=== PATIENT | female | born 1965 | race Caucasian/White ===

== ENCOUNTER → 2019-03-07 20:10 | Outpatient (CLI) | payer OTHER, SELFPAY | PROVIDERS: PCP Family Medicine; Visit Provider Physician Assistant | DX: J02.9 Acute pharyngitis, unspecified (principal) | CPT/HCPCS: 87070; 87077; 87147 ==

== ENCOUNTER → 2019-06-21 15:09 | Outpatient (CLI) | payer OTHER, SELFPAY ==
--- NOTE | 2019-06-21 15:11 | DI.US.S_ITS ---
PROCEDURE: US PELVIC COMPLETE INDICATIONS: PMB TECHNIQUE: Real-time scanning was performed of the pelvic organs, with image documentation. Additional endovaginal scanning was necessary due to incomplete visualization of the adnexal and endometrial structures by transabdominal scanning. COMPARISON: [facility], , PELVIC COMPLETE, 06/30/2017, 15:20. FINDINGS: Transabdominal scanning: Limited scanning through the kidneys shows no hydronephrosis. No pathologic free abdominal or pelvic fluid. Endovaginal scanning: Uterus: Uterus is normal in size at 8.0 x 3.9 x 4.3 cm. The endometrium measures 5.0 mm in combined thickness. Posterior subserosal fibroid similar in size measuring 2.3 x 2.4 x 1.6 cm. Anterior intramural fibroid slightly increased measure 1.1 x 0.9 x 0.8 cm. Ovaries: Right ovary not visualized. Normal left ovary measuring 1.8 x 0.9 x 1.3 cm. Complex left paraovarian thick walled cyst decreased in size now measuring 2.6 x 2.1 x 1.7 cm. IMPRESSION: 1. Uterine fibroids, with the anterior intramural fibroid slightly increased in size compared to prior examination. 2. Decrease in size of complex left paraovarian cyst. Dictated by: Tray Miller [facility] Interpreted: Sanjeev Willson MD on 06/21/2019 at 16:58 Approved by: Sanjeev Willson M.D. on 06/22/2019 at 15:20
== END ==
PROVIDERS: PCP Family Medicine; Visit Provider Family Medicine
DX: N95.0 Postmenopausal bleeding (principal); D25.1 Intramural leiomyoma of uterus; D25.2 Subserosal leiomyoma of uterus; N83.292 Other ovarian cyst, left side
CPT/HCPCS: 76830; 76856

== ENCOUNTER → 2019-11-28 08:39 | Outpatient (CLI) | payer OTHER, SELFPAY ==
--- NOTE | 2019-11-28 08:41 | DI.RAD.S_ITS ---
PROCEDURE: XR HIP W PEL IF DONE LT 2V INDICATIONS: hip pain TECHNIQUE: AP pelvis with lateral view(s) of the left hip(s). COMPARISON: [facility], CR, [id number] W PEL IF PERFORMED, 10/09/2017, 9:09. FINDINGS: Bones: No fractures or dislocations but there is asymmetric left greater than right moderately severe to severe hip joint osteoarthritis, with moderately severe degenerative change of the right. This has progressed from 2018 to a mild degree, and no trauma is associated. Pelvic ring appears intact. No suspicious bony lesions. Soft tissues: The visualized bowel gas pattern is normal. No suspicious soft tissue calcifications. IMPRESSION: Bilateral hip joint osteoarthritis greater on the left than the right with near [id number] articulation on the left and secondary subchondral cyst formation. No trauma. Worsening degeneration from early 2017. Dictated by: Jay Kerr M.D. on 11/28/2019 at 9:31 Approved by: Jay Kerr M.D. on 11/28/2019 at 9:33
[2019-11-28 09:40] LABS: Add Manual Diff / Slide Review NO; Basophils Absolute Auto 100 /uL (0-100); Eosinophils Absolute Auto 400 /uL (0-450); Eosinophils Percent Auto 7.1 % (2-4); Hematocrit 42.8 % (36-46); Hemoglobin 14.4 g/dL (12.0-16.0); Lymphocytes Absolute Auto 1800 /uL (1100-4500); Mean Corpuscular HGB Conc 33.8 % (30-36); Mean Corpuscular Hemoglobin 29.2 PG (26-34); Mean Corpuscular Volume 86.4 fL (80-100); Monocytes Absolute Auto 500 /uL (0-900); Monocytes Percent Auto 8.2 % (3-14); Neutrophils Absolute Auto 3000 /uL (1500-7000); Neutrophils Percent Auto 52.7 % (50-75); Platelet Count 246 X10^3/uL (150-400); Red Blood Cell Count 4.95 X10^6/uL (4.0-5.2); Red Cell Distribution Width 13.1 % (11.6-14.8); White Blood Cell Count 5.7 X10^3/uL (4.5-11.0)
[2019-11-28 10:18] LABS: Alanine Aminotransferase 36 IU/L (<35); Albumin 4.4 g/dL (3.5-5.0); Albumin Globulin Ratio 1.3 (1.0-2.8); Alkaline Phosphatase 79 U/L (38-126); Aspartate Aminotransferase 52 IU/L (14-36); BUN Creatinine Ratio 22.6 (6-22); Bilirubin Total 0.8 mg/dL (0.2-1.3); Blood Urea Nitrogen 19 mg/dL (7-17); Calcium 9.6 mg/dL (8.4-10.2); Carbon Dioxide 31 mmol/L (22-32); Chloride 102 mmol/L (98-107); Estimated Glomerular Filt Rate > 60.0 mL/min (>60); Globulin 3.5 g/dL (1.7-4.1); Glucose 105 mg/dL (70-100); HEMOLYSIS < 15 (0-50); Potassium 4.7 mmol/L (3.4-5.1); Sodium 142 mmol/L (137-145); Total Protein 7.9 g/dL (6.3-8.2)
[2019-11-28 10:42] LABS: TSH w/ Reflex to FT4 6.15 uIU/mL (0.47-4.68)
[2019-11-28 11:20] LABS: Folate 13.2 ng/mL (2.76-20.0); Vitamin B12 961 pg/mL (239-931)
[2019-11-28 11:22] LABS: Free T4, Direct Thyroxine 1.06 ng/dL (0.78-2.19)
== END ==
PROVIDERS: PCP Family Medicine; Referring Provider Family Medicine; Visit Provider Family Medicine
DX: M25.552 Pain in left hip (principal); L65.9 Nonscarring hair loss, unspecified; L85.3 Xerosis cutis; R53.82 Chronic fatigue, unspecified
CPT/HCPCS: 36415; 73502; 80053; 82607; 82746; 84439; 84443; 85025

== ENCOUNTER → 2019-12-21 13:40 | Outpatient (CLI) | payer OTHER, SELFPAY ==
--- NOTE | 2019-12-21 13:42 | DI.NM.S_ITS ---
PROCEDURE: NM PILI PERF SPECT R&S PHARM Rest and pharmacological stress myocardial perfusion SPECT with gated imaging and ejection fraction RADIOPHARMACEUTICAL: 24.4 mCi Tc-99m tetrafosmin IV at rest and 26.3 mCi Tc-99m tetrafosmin IV at peak effect of pharmacological stress. Stk-izx-sdmjozzc was performed. INDICATIONS: CHEST PAIN AND SOB TECHNIQUE: Radiopharmaceutical was injected at peak stress test, and also at rest. SPECT images were obtained. SPECT myocardial perfusion images were displayed in short axis, horizontal long axis, and vertical long axis views. Gated images were reviewed using ChiScan software. COMPARISON: None. CARDIAC STRESS: A pharmacologic stress test was performed under the supervision of an attending staff, using an infusion of lexiscan 0.4mg IV X1. Hemodynamic data: There is normal blood pressure and heart rate response to pharmacologic stress. Symptoms: The patient denied anginal chest pain. Aminophylline: none EKG: No diagnostic changes of ischemia; no ectopy. FINDINGS: Raw data: There is good myocardial uptake of radiotracer. No significant motion artifacts. Ywfa-nc-bukss ratio is 0.28 (normal is less than 0.38 for tetrafosmin tracer). Left ventricle function: Gated images demonstrate normal left ventricular wall thickening. No segmental wall motion abnormalities. No transient ischemic dilation; TID is 1.0 (normal less than 1.3). Left ventricle resting end diastolic volume is 97 mL. Left ventricle stress ejection fraction is 76%; normal range is above 45%. Myocardial perfusion: There is normal distribution of activity in the right and left ventricular myocardium. No fixed or reversible perfusion defects. IMPRESSION: Low risk, normal pharmaceutical nuclear stress test. 1) No perfusion evidence of ischemia or infarction. 2) Normal left ventricular size, wall motion, and systolic function (EF post stress 76%). 3) No ECG evidence of ischemia. 4) No angina during the study. 5) No prior nuclear stress test available for comparison. Dictated by: Pj Maldonado MD on 12/22/2019 at 16:28 Approved by: Pj Maldonado MD on 12/22/2019 at 16:30
--- NOTE | 2019-12-21 14:38 | P.PCN_ITS ---
Cardiac Stress Test Report Referral & Results Date Patient Seen: 12/21/19 Time Patient Seen: 14:30 Requesting provider: Dustin Brewster Indication: Chest pain and shortness of breath Rest ECG: Normal sinus rhythm Procedure Note: After both written and verbal informed consent the patient had an IV started by the diagnostic imaging RN and then was hooked up to the treadmill monitoring system. The patient was placed on the treadmill at 1 mile an hour with no elevation and was then injected with the Sulma scan material. The Cardiolite was then immediately administered. The patient spent an additional 2-3 minutes on the treadmill before being returned to the [facility] in the supine position. The patient had a normal response to all infused materials. She did experience some fatigue, shortness of breath, central chest pressure, and presyncope. These all resolved within a few minutes of receiving the Sulma material. Impression: Successful Sulma protocol. Will await perfusion imaging. Please note: Actual ECG tracings can be found in the PACS system.
== END ==
PROVIDERS: PCP Family Medicine; Referring Provider Family Medicine; Visit Provider Family Medicine
DX: R07.9 Chest pain, unspecified (principal); R06.02 Shortness of breath
CPT/HCPCS: 78452; 93016; 93017; 93018; A9502; J2785

== ENCOUNTER → 2020-02-20 15:39 | Outpatient (CLI) | payer OTHER, SELFPAY | PROVIDERS: PCP Family Medicine; Visit Provider Family Medicine | DX: Z01.818 Encounter for other preprocedural examination (principal) | CPT/HCPCS: 87797 ==

== ENCOUNTER → 2020-02-20 16:01 | Outpatient (CLI) | payer OTHER, SELFPAY ==
[2020-02-20 18:04] LABS: Add Manual Diff / Slide Review NO; Basophils Absolute Auto 100 /uL (0-100); Basophils Percent Auto 0.9 % (0-2); Eosinophils Absolute Auto 500 /uL (0-450); Eosinophils Percent Auto 7.3 % (2-4); Hematocrit 41.8 % (36-46); Lymphocytes Absolute Auto 2000 /uL (1100-4500); Lymphocytes Percent Auto 27.5 % (25-40); Mean Corpuscular HGB Conc 33.5 % (30-36); Mean Corpuscular Volume 86.7 fL (80-100); Monocytes Absolute Auto 500 /uL (0-900); Neutrophils Absolute Auto 4200 /uL (1500-7000); Neutrophils Percent Auto 57.3 % (50-75); Platelet Count 263 X10^3/uL (150-400); Red Blood Cell Count 4.82 X10^6/uL (4.0-5.2); Red Cell Distribution Width 13.2 % (11.6-14.8); White Blood Cell Count 7.3 X10^3/uL (4.5-11.0)
[2020-02-20 19:46] LABS: BUN Creatinine Ratio 24.7 (6-22); Blood Urea Nitrogen 23 mg/dL (7-17); Calcium 9.9 mg/dL (8.4-10.2); Carbon Dioxide 32 mmol/L (22-32); Chloride 98 mmol/L (98-107); Estimated Glomerular Filt Rate > 60.0 mL/min (>60); Glucose 75 mg/dL (70-100); HEMOLYSIS < 15 (0-50); Potassium 4.4 mmol/L (3.4-5.1); Sodium 137 mmol/L (137-145)
[2020-02-20 20:10] LABS: TSH w/ Reflex to FT4 3.12 uIU/mL (0.47-4.68)
== END ==
PROVIDERS: PCP Family Medicine; Referring Provider Family Medicine; Visit Provider Family Medicine
DX: Z01.812 Encounter for preprocedural laboratory examination (principal); Z01.818 Encounter for other preprocedural examination; E03.9 Hypothyroidism, unspecified
CPT/HCPCS: 36415; 80048; 84443; 85025; 87797

== ENCOUNTER → 2020-03-16 13:39 | Outpatient (CLI) | payer OTHER, SELFPAY ==
[2020-03-17 06:06] LABS: COVID19 Sendout Not Detected (Not Detect)
== END ==
PROVIDERS: PCP Family Medicine; Visit Provider Physician Assistant
DX: Z11.59 Encounter for screening for other viral diseases (principal)
CPT/HCPCS: 87635

== ENCOUNTER → 2020-05-14 14:26 | Outpatient (CLI) | payer OTHER, SELFPAY | PROVIDERS: PCP Family Medicine; Visit Provider Family Medicine | DX: Z01.818 Encounter for other preprocedural examination (principal) | CPT/HCPCS: 87797 ==

== ENCOUNTER → 2020-05-14 14:32 | Outpatient (CLI) | payer OTHER, SELFPAY ==
[2020-05-14 17:50] LABS: Add Manual Diff / Slide Review NO; Basophils Absolute Auto 0 /uL (0-100); Basophils Percent Auto 0.8 % (0-2); Eosinophils Absolute Auto 300 /uL (0-450); Eosinophils Percent Auto 5.5 % (2-4); Hematocrit 43.2 % (36-46); Hemoglobin 14.3 g/dL (12.0-16.0); Lymphocytes Absolute Auto 1600 /uL (1100-4500); Lymphocytes Percent Auto 26.6 % (25-40); Mean Corpuscular HGB Conc 33.1 % (30-36); Mean Corpuscular Hemoglobin 28.4 PG (26-34); Mean Corpuscular Volume 85.8 fL (80-100); Monocytes Absolute Auto 400 /uL (0-900); Monocytes Percent Auto 6.3 % (3-14); Neutrophils Absolute Auto 3600 /uL (1500-7000); Neutrophils Percent Auto 60.8 % (50-75); Platelet Count 280 X10^3/uL (150-400); Red Blood Cell Count 5.03 X10^6/uL (4.0-5.2); Red Cell Distribution Width 13.3 % (11.6-14.8); White Blood Cell Count 5.9 X10^3/uL (4.5-11.0)
[2020-05-14 18:07] LABS: BUN Creatinine Ratio 18.6 (6-22); Blood Urea Nitrogen 16 mg/dL (7-17); Calcium 9.9 mg/dL (8.4-10.2); Carbon Dioxide 34 mmol/L (22-32); Chloride 101 mmol/L (98-107); Estimated Glomerular Filt Rate > 60.0 mL/min (>60); Glucose 83 mg/dL (70-100); HEMOLYSIS < 15 (0-50); Potassium 4.4 mmol/L (3.4-5.1); Sodium 142 mmol/L (137-145)
[2020-05-14 18:27] LABS: Free T3, Triiodothyronine Free 3.33 pg/mL (2.77-5.27); Free T4, Direct Thyroxine 1.07 ng/dL (0.78-2.19)
[2020-05-14 18:41] LABS: Thyroid Stimulating Hormone 1.89 uIU/mL (0.47-4.68)
== END ==
PROVIDERS: PCP Family Medicine; Referring Provider Family Medicine; Visit Provider Family Medicine
DX: Z01.818 Encounter for other preprocedural examination (principal); E03.9 Hypothyroidism, unspecified; L65.9 Nonscarring hair loss, unspecified
CPT/HCPCS: 36415; 80048; 84439; 84443; 84481; 85025; 87797

== ENCOUNTER → 2020-06-10 08:40 | Outpatient (CLI) | payer OTHER, SELFPAY ==
[2020-06-10 09:53] LABS: COVID19 -Nasal RAPID Negative (Negative)
== END ==
PROVIDERS: PCP Family Medicine; Visit Provider Physician Assistant
DX: Z11.59 Encounter for screening for other viral diseases (principal)
CPT/HCPCS: 87635

== ENCOUNTER → 2020-06-15 13:23 | Outpatient (CLI) | payer OTHER, SELFPAY ==
[2020-06-15 14:45] LABS: COVID19 -Nasal RAPID Negative (Negative)
== END ==
PROVIDERS: PCP Family Medicine; Visit Provider Nurse Practitioner
DX: Z11.59 Encounter for screening for other viral diseases (principal)
CPT/HCPCS: 87635

== ENCOUNTER → 2020-07-23 12:03 | Outpatient (CLI) | payer OTHER, SELFPAY ==
[2020-07-23 14:08] LABS: TSH w/ Reflex to FT4 2.12 uIU/mL (0.47-4.68)
== END ==
PROVIDERS: PCP Family Medicine; Referring Provider Family Medicine; Visit Provider Family Medicine
DX: E03.9 Hypothyroidism, unspecified (principal)
CPT/HCPCS: 36415; 84443

== ENCOUNTER → 2020-07-26 09:56 | Outpatient (CLI) | payer OTHER, SELFPAY ==
--- NOTE | 2020-07-26 09:58 | DI.US.S_ITS ---
PROCEDURE: US PELVIC COMPLETE INDICATIONS: FIBROIDS; LEFT OVARIAN CYST TECHNIQUE: Real-time scanning was performed of the pelvic organs, with image documentation. Additional endovaginal scanning was necessary due to incomplete visualization of the adnexal and endometrial structures by transabdominal scanning. COMPARISON: [facility], , PELVIC COMPLETE, 06/30/2017, 15:20. [facility], , PELVIC COMPLETE, 06/21/2019, 15:42. FINDINGS: Transabdominal scanning: Limited scanning through the kidneys shows no hydronephrosis. No pathologic free abdominal or pelvic fluid. Endovaginal scanning: Uterus: Uterus is normal in size at 8 x 3.6 x 4.8 cm. The endometrium measures 4 mm in combined thickness. Hypoechoic uterine lesions are seen, which are attributed to fibroids. They measure as follows: Right posterior uterus, intramural, 2.3 x 1.6 x 2.1 cm, prior 2.3 x 2.4 x 1.6 cm Left anterior uterus, intramural, 1.4 x 1.1 x 1.1 cm, prior 1.1 x 0.8 x 0.9 cm. Ovaries: The right ovary measures 1.6 x 1.1 x 0.9 cm and demonstrates an unremarkable sonographic appearance. The left ovary measures 2.4 x 1.8 x 2.5 cm and demonstrates a complex nonvascular cyst that measures 2.3 x 1.6 x 2.3 cm, which previously measured 2.6 x 2.1 x 1.7 cm. No adnexal masses are seen on either side. IMPRESSION: Interval minimal decrease in size of the complex left ovarian cyst. Uterine fibroids are seen, which appear stable. The endometrial stripe is not thickened in this postmenopausal patient. Dictated by: Nick Gaxiola M.D. on 07/26/2020 at 11:04 Approved by: Nick Gaxiola M.D. on 07/26/2020 at 11:07
== END ==
PROVIDERS: PCP Family Medicine; Referring Provider Family Medicine; Visit Provider Family Medicine
DX: D25.1 Intramural leiomyoma of uterus (principal); N83.202 Unspecified ovarian cyst, left side
CPT/HCPCS: 76830; 76856

== ENCOUNTER → 2020-08-06 16:50 | Outpatient (CLI) | payer OTHER, SELFPAY ==
--- NOTE | 2020-08-06 16:51 | DI.MG.S_ITS ---
BILATERAL DIGITAL SCREENING MAMMOGRAM 3D/2D WITH CAD: 08/06/2020 CLINICAL: Routine screening. Family history of breast cancer. Comparison is made to exams dated: 09/08/2017 mammogram, 08/18/2017 mammogram - [facility], and 03/14/2007 mammogram - [facility]. There are scattered fibroglandular elements in both breasts. Current study was also evaluated with a Computer Aided Detection (CAD) system. There is a possible developing oval equal density focal asymmetry in the right breast at 5 o'clock middle depth. This is more prominent. No other significant masses, calcifications, or other findings are seen in either breast. IMPRESSION: INCOMPLETE: NEEDS ADDITIONAL IMAGING EVALUATION The possible developing oval equal density focal asymmetry in the right breast is indeterminate. Additional views with possible ultrasound are recommended. This exam was interpreted at Station ID: [id number]. NOTE: For mammograms, a report in lay terms will be sent to the patient. Approximately 15% of breast malignancies will not be visualized mammographically. In the management of a palpable breast mass, a negative mammogram must not discourage biopsy of a clinically suspicious lesion. Electronically Signed By: Torsten russo/charisma:08/07/2020 07:31:55 letter sent: Additional Imaging Needed ACR BI-RADS Category 0: Incomplete 3340F
== END ==
PROVIDERS: PCP Family Medicine; Referring Provider Family Medicine; Visit Provider Family Medicine
DX: Z12.31 Encounter for screening mammogram for malignant neoplasm of breast (principal); Z80.3 Family history of malignant neoplasm of breast
CPT/HCPCS: 77063; 77067

== ENCOUNTER → 2020-08-13 14:35 | Outpatient (CLI) | payer OTHER, SELFPAY ==
[2020-08-13 15:42] LABS: Add Manual Diff / Slide Review NO; Basophils Absolute Auto 0 /uL (0-100); Basophils Percent Auto 0.7 % (0-2); Eosinophils Absolute Auto 300 /uL (0-450); Eosinophils Percent Auto 4.9 % (2-4); Hematocrit 40.6 % (36-46); Hemoglobin 13.2 g/dL (12.0-16.0); Lymphocytes Absolute Auto 2000 /uL (1100-4500); Lymphocytes Percent Auto 29.3 % (25-40); Mean Corpuscular HGB Conc 32.4 % (30-36); Mean Corpuscular Hemoglobin 27.3 PG (26-34); Mean Corpuscular Volume 84.1 fL (80-100); Monocytes Absolute Auto 600 /uL (0-900); Monocytes Percent Auto 8.2 % (3-14); Neutrophils Absolute Auto 3900 /uL (1500-7000); Neutrophils Percent Auto 56.9 % (50-75); Platelet Count 279 X10^3/uL (150-400); Red Blood Cell Count 4.83 X10^6/uL (4.0-5.2); Red Cell Distribution Width 13.6 % (11.6-14.8); White Blood Cell Count 6.8 X10^3/uL (4.5-11.0)
[2020-08-13 16:11] LABS: Alanine Aminotransferase 51 IU/L (<35); Albumin 4.4 g/dL (3.5-5.0); Albumin Globulin Ratio 1.6 (1.0-2.8); Alkaline Phosphatase 94 U/L (38-126); Aspartate Aminotransferase 49 IU/L (14-36); BUN Creatinine Ratio 16.9 (6-22); Bilirubin Total 0.4 mg/dL (0.2-1.3); Blood Urea Nitrogen 14 mg/dL (7-17); Calcium 9.2 mg/dL (8.4-10.2); Carbon Dioxide 31 mmol/L (22-32); Chloride 102 mmol/L (98-107); Estimated Glomerular Filt Rate > 60.0 mL/min (>60); Globulin 2.8 g/dL (1.7-4.1); Glucose 121 mg/dL (70-100); HEMOLYSIS < 15 (0-50); Potassium 4.1 mmol/L (3.4-5.1); Sodium 139 mmol/L (137-145); Total Protein 7.2 g/dL (6.3-8.2)
[2020-08-13 16:39] LABS: RBC Morphology Normal Morphology
[2020-08-13 16:40] LABS: Platelet Estimate Adequate on smear
== END ==
PROVIDERS: PCP Family Medicine; Referring Provider Physician Assistant; Visit Provider Physician Assistant
DX: L64.8 Other androgenic alopecia (principal)
CPT/HCPCS: 36415; 80053; 85025

== ENCOUNTER → 2020-08-27 14:20 | Outpatient (CLI) | payer OTHER, SELFPAY ==
--- NOTE | 2020-08-27 14:21 | DI.US.S_ITS ---
PROCEDURE: US ABDOMEN COMPLETE INDICATIONS: ELEVATED LIVER ENZYMES TECHNIQUE: Real-time scanning was performed of the abdominal and retroperitoneal organs, with image documentation. COMPARISON: None. FINDINGS: Liver: The liver is mildly enlarged measuring 18 cm in maximum dimension. There is mild diffusely increased hepatic echogenicity. Hepatopetal flow is noted in the main portal vein. Gallbladder: The gallbladder appears normal without gallstones or gallbladder wall thickening. There is no pericholecystic fluid. Sonographic Boles sign is negative. Biliary ducts: Intrahepatic bile ducts are non-dilated. Extrahepatic bile duct caliber measures 4 mm. Normal is 6-7 mm or less in diameter, or 10 mm or less post-cholecystectomy. Pancreas: A 5 mm anechoic cyst is seen in the body of the pancreas. Spleen: Spleen is normal in size and homogeneous in echotexture. Kidneys: Kidneys are normal in size and echotexture. Right kidney measures 10.2 cm long; left kidney measures 12.2 cm long. No hydronephrosis or nephrolithiasis. No solid masses. A 0.9 cm simple cyst is seen in the left kidney. Aorta: Visualized aorta is normal in caliber at less than 3 cm. Iliacs: Proximal common iliac arteries are normal in caliber at less than 2.5 cm. IVC: Intrahepatic inferior vena cava is patent. Miscellaneous: No free abdominal fluid. IMPRESSION: 1. Increased hepatic echogenicity and mild hepatomegaly are seen, most commonly secondary to diffuse hepatic steatosis but other sources of hepatocellular disease cannot be excluded. Recommend clinical correlation. 2. Nonspecific 5 mm cyst in the body of the pancreas. Recommend pancreas protocol MRI or CT in 12 months to demonstrate stability. Dictated by: Quentin Willson M.D. on 08/27/2020 at 18:05 Approved by: Quentin Willson M.D. on 08/27/2020 at 18:10
[2020-08-27 15:39] LABS: Erythrocyte Sedimentation Rate 17 MM/HR (0-20)
[2020-08-27 16:12] LABS: C-Reactive Protein Quant 0.9 mg/dL (<1.0)
[2020-08-27 16:46] LABS: Ferritin 19 ng/mL (11-264)
[2020-08-28 07:07] LABS: HBsAg Screen Negative (Negative); Hepatitis A Antibody IgM Negative (Negative); Hepatitis B Core Antibody IgM Negative (Negative); Hepatitis C Antibody 0.2 s/co ratio (0.0-0.9)
== END ==
PROVIDERS: PCP Family Medicine; Referring Provider Family Medicine; Visit Provider Family Medicine
DX: R74.8 Abnormal levels of other serum enzymes (principal); R16.0 Hepatomegaly, not elsewhere classified; K86.2 Cyst of pancreas
CPT/HCPCS: 36415; 76700; 80074; 82728; 85651; 86140

== ENCOUNTER → 2020-08-28 14:30 | Outpatient (CLI) | payer OTHER, SELFPAY ==
--- NOTE | 2020-08-28 | DI.US.S_ITS ---
LIMITED ULTRASOUND OF RIGHT BREAST AND AXILLA: 08/28/2020 CLINICAL: Patient returns today to evaluate a focal asymmetry in the right breast. Comparison is made to exams dated: 08/28/2020 mammogram, 08/06/2020 mammogram, 09/08/2017 ultrasound, 09/08/2017 mammogram, 08/18/2017 mammogram - [facility], and 03/14/2007 mammogram - [facility]. Color flow and real-time ultrasound of the right breast 3 o'clock, and axilla regions were performed. Avendano scale images of the real-time examination were reviewed. There is a 0.4 cm x 0.4 cm x 0.4 cm round cyst in the right breast at 3 o'clock anterior depth 2 cm from the nipple. This round cyst is hypoechoic with no posterior acoustic shadowing or enhancement. This correlates smaller than estimated on mammography and may not correspond to the mammographic abnormality. Color flow imaging demonstrates that there is no vascularity present. No significant abnormalities were seen sonographically in the right axilla. IMPRESSION: PROBABLY BENIGN The 0.4 cm round cyst in the right breast most likely is a simple cyst, but is too small to accurately characterize and is probably benign. This may not correspond to the mammographic finding that was not convincingly reproduced on today's special views. A follow-up right mammogram and an ultrasound in 6 months is recommended to demonstrate stability of these areas. Findings and recommendations were conveyed to the patient at time of exam. This exam was interpreted at Station ID: [id number]. Electronically Signed By: Marilu gerardo/:08/28/2020 15:59:27 letter sent: Followup Recommended Ultrasound BI-RADS: 3 Probably benign
--- NOTE | 2020-08-28 | DI.MG.S_ITS ---
UNILATERAL RIGHT DIGITAL DIAGNOSTIC MAMMOGRAM 3D/2D WITH ADDITIONAL VIEWS: 08/28/2020 CLINICAL: Additional evaluation requested from prior study. Comparison is made to exams dated: 08/06/2020 mammogram, 09/08/2017 mammogram, and 08/18/2017 mammogram - [facility]. There are scattered fibroglandular elements in right breast. There is a possible developing 8 mm oval low density focal asymmetry in the right breast at 3 o'clock middle depth. This is not seen in additional views and is less prominent with spot compression. No other significant masses or calcifications are seen in the breast. IMPRESSION: INCOMPLETE: NEEDS ADDITIONAL IMAGING EVALUATION The possible developing 8 mm oval low density focal asymmetry in the right breast is not convincingly reproduced and remains indeterminate. An ultrasound is recommended. This was performed immediately following this exam. This exam was interpreted at Station ID: [id number]. NOTE: For mammograms, a report in lay terms will be sent to the patient. Approximately 15% of breast malignancies will not be visualized mammographically. In the management of a palpable breast mass, a negative mammogram must not discourage biopsy of a clinically suspicious lesion. Electronically Signed By: Marilu gerardo/:08/28/2020 15:23:11 ACR BI-RADS Category 0: Incomplete 3340F
== END ==
PROVIDERS: PCP Family Medicine; Referring Provider Family Medicine; Visit Provider Family Medicine
DX: R92.8 Other abnormal and inconclusive findings on diagnostic imaging of breast (principal); N60.01 Solitary cyst of right breast
CPT/HCPCS: 76642; 77065; G0279

== ENCOUNTER → 2021-01-07 15:10 | Outpatient (CLI) | payer OTHER, SELFPAY ==
--- NOTE | 2021-01-07 15:11 | DI.RAD.S_ITS ---
PROCEDURE: XR WRIST LT MIN 3V INDICATIONS: left wrist pain TECHNIQUE: 4 views of the wrist were acquired. COMPARISON: None. FINDINGS: Bones: No fractures or dislocations. No suspicious bony lesions. Osteoarthritic changes are noted along radial aspect of left wrist. Scaphoid view: Scaphoid is grossly intact. Soft tissues: No suspicious soft tissue calcifications. IMPRESSION: No acute wrist fracture or dislocation. Mild osteoarthritis along radial aspect of left wrist. Dictated by: Sanjeev Willson M.D. on 01/07/2021 at 15:23 Approved by: Sanjeev Willson M.D. on 01/07/2021 at 15:24
== END ==
PROVIDERS: PCP Family Medicine; Referring Provider Physician Assistant; Visit Provider Physician Assistant
DX: M25.532 Pain in left wrist (principal); M19.032 Primary osteoarthritis, left wrist
CPT/HCPCS: 73110

== ENCOUNTER → 2021-03-11 07:20 | Outpatient (CLI) | payer OTHER, SELFPAY ==
--- NOTE | 2021-03-11 07:23 | DI.US.S_ITS ---
PROCEDURE: US ABDOMEN COMPLETE INDICATIONS: FOLLOW-UP PANCREATIC CYST TECHNIQUE: Real-time scanning was performed of the abdominal and retroperitoneal organs, with image documentation. COMPARISON: [facility], CT, CHEST/ABD/PEL WITH CONTRAST, 12/04/2016, 16:58. [facility], US, US ABDOMEN COMPLETE, 08/27/2020, 14:42. FINDINGS: Liver: The liver demonstrates increased size. The liver demonstrates generalized moderately increased echogenicity. This decreases ultrasound sensitivity for detection of hepatic masses. Gallbladder: No findings of gallstones or sludge are seen. The gallbladder wall is not thickened, measuring 3 mm or less. An 8 mm gallbladder wall polyp can be seen along the posterior wall of the gallbladder. No specific pericholecystic fluid is seen. The sonographic Boles sign is negative. Biliary ducts: Intrahepatic bile ducts are non-dilated. Extrahepatic bile duct caliber measures 4 mm. Normal is 6-7 mm or less in diameter, or 10 mm or less post-cholecystectomy. Pancreas: There is again seen a simple cyst within the body of the pancreas that now measures 9 x 5 x 6 mm. Previously this measured 5 x 5 x 5 mm. Spleen: Spleen is normal in size and homogeneous in echotexture. Kidneys: Kidneys are normal in size and echotexture. Right kidney measures 10.8 cm long; left kidney measures 12.5 cm long. No hydronephrosis or nephrolithiasis. No solid masses. At the inferior aspect of the left kidney, there is a cystic lesion seen that measures up to 19 mm, which demonstrates a 7 mm calcification associated with it. Aorta: Visualized aorta is normal in caliber at less than 3 cm. Iliacs: Proximal common iliac arteries are normal in caliber at less than 2.5 cm. IVC: Intrahepatic inferior vena cava is patent. Miscellaneous: No free abdominal fluid. IMPRESSION: Increased size of the pancreatic cyst. A pancreas protocol CT or MRI would not be recommended for further evaluation (assuming that there is no contraindication). At the inferior pole of the left kidney, there is a complex cyst, with calcification along its wall. This is felt most likely to be benign and not significantly changed compared to the 2017 CT examination. However, when clinically appropriate, please consider a renal mass protocol CT for further evaluation. (Alternatively, this would likely be adequately evaluated on a pancreas protocol CT.) Enlarged, fatty liver. Gallbladder wall polyp incidentally noted. Dictated by: Nick Gaxiola M.D. on 03/11/2021 at 9:51 Approved by: Nick Gaxiola M.D. on 03/11/2021 at 9:56
== END ==
PROVIDERS: PCP Family Medicine; Referring Provider Family Medicine; Visit Provider Family Medicine
DX: K86.2 Cyst of pancreas (principal)
CPT/HCPCS: 76700

== ENCOUNTER → 2021-03-27 15:09 | Outpatient (CLI) | payer OTHER, SELFPAY ==
--- NOTE | 2021-03-27 15:12 | DI.CT.S_ITS ---
PROCEDURE: CT ABDOMEN PELVIS W CON INDICATIONS: pancreatic cyst increased in size TECHNIQUE: After the administration of intravenous contrast, axial sections acquired from the lung bases to the pubic symphysis. Coronal and sagittal reformats were performed. For radiation dose reduction, the following was used: automated exposure control, adjustment of mA and/or kV according to patient size. COMPARISON: [facility], US, US PELVIC COMPLETE, 07/26/2020, 10:09. [facility], US, US ABDOMEN COMPLETE, 08/27/2020, 14:42. [facility], CT, CHEST/ABD/PEL WITH CONTRAST, 12/04/2016, 16:58. [facility], US, US ABDOMEN COMPLETE, 03/11/2021, 7:39. FINDINGS: Image quality: Excellent. Lung bases: Unremarkable. Heart: No significant findings. ABDOMEN: Pancreas: There is a 6 mm low-density nodule in the head of the pancreas. Based on the comparison ultrasound, it appears to be a cyst. Liver: Liver is enlarged measuring 22.2 cm in length. Hepatic steatosis. There is no hepatic mass. Gallbladder: Unremarkable. Biliary ducts: Unremarkable. Spleen: Unremarkable. Adrenal Glands: Unremarkable. Kidneys and Ureters: Kidneys are normal in size and symmetric in enhancement. A couple of low-density cortical nodules in the inferior pole of the left kidney are present, measuring 1.3 cm and 1.9 cm, compatible with renal cysts. Both cysts are simple appearing based on CT without discernable wall thickness or internal septa. There is a 2 mm calcification in the inferior pole of the right kidney, compatible with a nonobstructive stone. No hydronephrosis. Stomach and Bowel: Stomach, small bowel loops, and colon are normal in caliber. Diverticulosis without diverticulitis. Peritoneum: No abnormal intraperitoneal fluid. No free air. Ventral Wall: No hernias. Abdominal Nodes: No retroperitoneal or mesenteric adenopathy by size criteria. Vessels: Aorta and inferior vena cava are normal in size. PELVIS: Pelvic Organs: Uterus appears myomatous. There is a 2 cm left ovarian cyst. Right ovary is not well visualized. Bladder: Unremarkable. Pelvic Nodes: No enlarged lymph nodes. Miscellaneous: No hernias are seen. Bones: Degenerative disc and facet disease in the lower thoracic and lumbar spine. Bilateral hip arthroplasties. Metallic artifact from hip prosthesis partially obscure pelvis. IMPRESSION: 1. There is a 6 mm low-density nodule in the head of the pancreas, most likely a simple cyst. A differential diagnosis is a cystic neoplasm such as IPMN. Recommend continued imaging follow-up. If clinically indicated, endoscopic ultrasound and ultrasound-guided biopsy may be performed. 2. Diverticulosis without diverticulitis. 3. Hepatomegaly and hepatic steatosis. 4. Myomatous uterus and a 2 cm left ovarian cyst. Pelvic structures are partially obscured by metallic artifacts, therefore, are not well seen. Dictated by: Hakan Mei M.D. on 03/27/2021 at 16:31 Approved by: Hakan Mei M.D. on 03/27/2021 at 18:23
== END ==
PROVIDERS: PCP Family Medicine; Referring Provider Family Medicine; Visit Provider Family Medicine
DX: K86.2 Cyst of pancreas (principal); K57.90 Diverticulosis of intestine, part unspecified, without perforation or abscess without bleeding; K76.0 Fatty (change of) liver, not elsewhere classified; N83.202 Unspecified ovarian cyst, left side
CPT/HCPCS: 74177; Q9967

== ENCOUNTER → 2022-03-29 15:58 | Outpatient (CLI) | payer OTHER, SELFPAY ==
--- NOTE | 2022-03-29 15:59 | DI.RAD.S_ITS ---
PROCEDURE: XR KNEE RT 3V INDICATIONS: Right knee strain TECHNIQUE: 3 views of the knee were acquired. COMPARISON: None. FINDINGS: Bones: No acute fractures or dislocations. No suspicious bony lesions. Soft tissues: No joint effusion. No suspicious soft tissue calcifications. IMPRESSION: No acute osseous abnormality. If clinical suspicion and/or symptoms persist, additional imaging with repeat plain films, or advanced imaging (e.g. CT, MRI) may be helpful for further assessment. Dictated by: Quentin Willson M.D. on 03/29/2022 at 17:01 Approved by: Quentin Willson M.D. on 03/29/2022 at 17:01
== END ==
PROVIDERS: PCP Family Medicine; Referring Provider Nurse Practitioner Family; Visit Provider Nurse Practitioner Family
DX: M25.561 Pain in right knee (principal)
CPT/HCPCS: 73562

== ENCOUNTER 2022-04-03 00:30 | Emergency (ER) | payer OTHER, SELFPAY ==
--- NOTE | 2022-04-03 | DI.RAD.S_ITS ---
PROCEDURE: XR KNEE RT 3V INDICATIONS: FALL HEARD KNEE POP CANT STRAIGHTEN TECHNIQUE: 3 views of the knee were acquired. COMPARISON: [facility], CR, XR KNEE RT 3V, 03/29/2022, 16:01. FINDINGS: Bones: No fractures or dislocations. There is minimal osteophytosis. No suspicious bony lesions. Minimal joint space narrowing redemonstrated in the medial compartment. Soft tissues: There is a suspected small joint effusion. No suspicious soft tissue calcifications. IMPRESSION: 1. No fracture or dislocation. Dictated by: Johny Bey M.D. on 04/03/2022 at 2:10 Approved by: Johny Bey M.D. on 04/03/2022 at 2:12
[2022-04-03 00:35] VITALS: BP 145/92; PULSE 90; RESP 18; TEMP 36.4; O2SAT 97; BMI 32.3
--- NOTE | 2022-04-03 00:58 | DI.RAD.S_ITS ---
PROCEDURE: XR ANKLE RT MIN 3V INDICATIONS: twisted it TECHNIQUE: 3 views of the ankle were acquired. COMPARISON: None. FINDINGS: Bones: No fractures or dislocations. Ankle mortise is normally aligned. No suspicious bony lesions. Soft tissues: There is a small tibiotalar joint effusion. Achilles tendon appears intact with a small enthesophyte at its insertion. IMPRESSION: 1. No fracture or dislocation. Dictated by: Johny Bey M.D. on 04/03/2022 at 2:09 Approved by: Johny Bey M.D. on 04/03/2022 at 2:10
--- NOTE | 2022-04-03 05:01 | ED_ITS ---
HPI - Extremity Injury (Lower) General Chief Complaint: Extremity Injury, Lower Stated Complaint: TRIPPED AND FELL RIGHT FOOT SWOLLEN Time Seen by Provider: 04/03/22 05:01 Source: patient Mode of arrival: Wheelchair Limitations: no limitations History of Present Illness HPI Narrative: This is a 56 female with history of dyslipidemia hypothyroidism and prior bilateral hip surgery. Patient states she injured her right knee jumping out of the back of a truck about 3 weeks ago, she is had persistent pain and discomfort she denies any swelling or redness, she saw primary care in the walk-in clinic has been given prescription for cyclobenzaprine which has not been very helpful, she is been taking leave, weight-bearing as tolerated but this evening accidentally tripped over her cat had a very awkward twisting motion with her knee and foot on the right. She states she got a bunch of bruising and swelling of the right foot which has gotten better with an ice pack here and seems to his resolved. She still has some discomfort in the foot, right knee pain has significantly worsened. She does not appreciate any swelling or skin changes. Patient states she is had some pain from the knee radiating up and down the leg but states it does not feel like her prior sciatica she had been . She does not think that it is coming from her back or sciatic nerve. She does note some numbness tingling down her leg. Patient states movement at the knee is quite painful and it sometimes feels like it wants to go a little too far backwards. Patient had Toradol the other day at the walk-in clinic was helpful for about a day and symptoms returned. She saw Dr. Brewster had joint injection with corticosteroid and was recommended to continue NSAIDs minimally helpful but significantly worsened after this evening he is re-injury. She denies prior knee or foot surgery she is had hip surgery bilaterally. She states she is allergic to Demerol makes her nauseated and vomit as well as penicillin. She states Tylenol is not very helpful for pain. She states oral narcotics often cause her to feel sick but she is tolerated tramadol in the past after surgery. Related Data Home Medications Medication Instructions Recorded Confirmed caffeine 200 mg tablet 100 mg PO ##0 06/02/17 03/29/22 naproxen sodium 220 mg capsule 440 mg PO BID PRN 08/17/19 03/29/22 (Aleve) Previous Rx's Medication Instructions Recorded ketoconazole 2 % topical cream 2 % topical BID ##25 09/30/17 diclofenac sodium 1 % topical gel 4 gram topical .COMPLEX PRN hip 12/22/19 (Voltaren) pain #100 grams levothyroxine 50 mcg tablet 50 mcg PO DAILY #90 tabs 06/27/20 atorvastatin 40 mg tablet (Lipitor) 40 mg PO DAILY #90 tabs 09/03/20 cyclobenzaprine 5 mg tablet 5 mg PO TID PRN muscle spasm #20 03/29/22 tabs tramadol 50 mg tablet 50 mg PO Q6H PRN pain #10 tabs 04/03/22 Allergies Allergy/AdvReac Type Severity Reaction Status Date / Time latex [LATEX] Allergy Unknown Verified 04/02/22 08:59 meperidine [From DEMEROL] Allergy Unknown NAUSEA Verified 04/02/22 08:59 Penicillins [PENICILLINS] Allergy Unknown Verified 04/02/22 08:59 Review of Systems Review of Systems ROS Unobtainable: All systems reviewed & are unremarkable except as noted in HPI and below Patient History Medical History Concussion Cyst of left ovary (07/07/17) Flank pain (07/07/17) Left shoulder strain Surgical History Status post appendectomy Status post dilation and curettage Family History Father Age: 81 Heart disease Hypertension A-fib Grandfather Cancer Heart disease Grandmother Fibromyalgia Mother Age: 77 Arthritis Grandmother Cancer Social History marital status: Smoking Status: Never smoker alcohol intake: current (ON OCCASION ) substance use type: does not use Smoking Status: Never smoker Substance Use Type: does not use Exam Narrative Exam Narrative: GENERAL: Alert and oriented x three, female in mild distress HEENT: Head normocephalic, atraumatic, EOMI, pupils reactive, face symmetric, moist mucous membranes NECK: Supple, full range of motion CARDIOVASCULAR: Regular rate and rhythm without murmurs, rubs or gallops. RESPIRATORY: Breath sounds equal bilaterally, no wheezes rales or rhonchi. ABDOMEN: Soft, nontender. Normoactive bowel sounds all 4 quadrants. No guarding or rebound, rigidity, no mass : No CVA tenderness EXTREMITIES: Normal range of motion at the right hip patient has increased pain with extension flexion of the knee, normal range of motion at the ankle. Patient does not have any clear bony tenderness except for the medial malleolus of the right foot and ankle. No ecchymosis, erythema or swelling is appreciated. Patient's right knee does not have any erythema, no warmth, no swelling appreciated in comparison to the left. Patient has pain with joint laxity testing particularly with posterior drawer and valgus but no obvious laxity. Compression test is also painful for patient, no clubbing or edema. Neurovascularly intact. 2+ dorsalis pedis bilaterally sensations intact bilateral lower extremities. Patient is holding her legs flexed position NEUROLOGICAL: Cranial nerves II through XII grossly intact. Moving all extremities SKIN: Warm, dry, no petechiae, no rashes or lesions. Initial Vital Signs Initial Vital Signs: Vital Signs Temperature 97.5 F L 04/03/22 00:35 Pulse Rate 90 04/03/22 00:35 Respiratory Rate 18 04/03/22 00:35 Blood Pressure 145/92 H 04/03/22 00:35 Pulse Oximetry 97 04/03/22 00:35 Oxygen Delivery Method 04/03/22 00:35 Course Orders Ordered: ED Orders 04/03/22 XR knee RT 3V Stat 04/03/22 00:58 XR ankle RT min 3V Stat Discontinued Medications Tramadol HCl (Tramadol 50 Mg Prepack) 1 bottle [facility] SEEIN[facility] ONE Stop: 04/03/22 05:23 Last Admin: 04/03/22 05:55 Dose: 1 bottle Documented By: ELEAZAR Vital Signs Vital signs: Vital Signs - 8 hr 04/03/22 00:35 04/03/22 06:09 Temperature 97.5 F L Pulse Rate 90 85 Respiratory Rate 18 18 Blood Pressure 145/92 H 132/91 H Pulse Oximetry 97 99 Oxygen Delivery Method Room Air Room Air MDM - Extremity Injury (Lower) Imaging Data Extremity x-ray #1: Radiologist's Impression: Deloris Jaeger??56??F??1965 ? Allergy/Adv: latex, meperidine, Penicillins (More??) Close Ankle X-Ray (Signed) Johny Bey - 04/03/22 Knee X-Ray (Signed) Johny Bey - 04/03/22 Knee X-Ray (Signed) Quetnin Willson - 03/29/22 Abdomen/Pelvis CT (Signed) HamidaRamón - 03/27/21 Abdomen Ultrasound (Signed) Nick Gaxiola - 03/11/21 Wrist X-Ray (Signed) Sanjeev Willson - 01/07/21 Mammogram, Additional Views (Signed) Marilu Smith - 08/28/20 Breast Ultrasound (Signed) Marilu Smith - 08/28/20 Abdomen Ultrasound (Signed) Quentin Willson - 08/27/20 Mammogram Screening (Signed) Torsten Cross - 08/06/20 Pelvis Ultrasound (Signed) Nick Gaxiola - 07/26/20 Myocardial Perfusion Scan Nuc Med (Signed) Pj Maldonado - 12/21/19 EKG Rpt. 12/05/19 Hip X-Ray (Signed) Jay Kerr - 11/28/19 Pelvis Ultrasound (Signed) Sanjeev Willson - 06/21/19 Launch?[place] [address] XRay Report Signed Patient: Deloris Jaeger MR#: [id number] : 1965 Acct:[id number] Age/Sex: 56 / F Date of Service: 04/03/22 Loc: Accession Number: [id number] ?? Procedure: XR ankle RT min 3V Ordering Provider: Brittany Sumner D.O. PROCEDURE:? XR ANKLE RT MIN 3V ? INDICATIONS:? twisted it ? TECHNIQUE:? 3 views of the ankle were acquired.? ? COMPARISON:? None. ? FINDINGS:? ? Bones:? No fractures or dislocations.? Ankle mortise is normally aligned.? No suspicious bony lesions.? ? Soft tissues:? There is a small tibiotalar joint effusion.? Achilles tendon appears intact with a small enthesophyte at its insertion.? ? ? IMPRESSION:? ? 1. No fracture or dislocation. ? Dictated by: Johny Bey M.D. on 04/03/2022 at 2:09 ? ? Approved by: Johny Bey M.D. on 04/03/2022 at 2:10?? Extremity x-ray #2: Radiologist's Impression: Deloris Jaeger??56??F??1965 ? Allergy/Adv: latex, meperidine, Penicillins (More??) Close Ankle X-Ray (Signed) Johny Bey - 04/03/22 Knee X-Ray (Signed) Johny Bey - 04/03/22 Knee X-Ray (Signed) Quentin Willson - 03/29/22 Abdomen/Pelvis CT (Signed) Ramón Mei - 03/27/21 Abdomen Ultrasound (Signed) Nick Gaxiola - 03/11/21 Wrist X-Ray (Signed) Sanjeev Willson - 01/07/21 Mammogram, Additional Views (Signed) Marilu Smith - 08/28/20 Breast Ultrasound (Signed) Marilu Smith - 08/28/20 Abdomen Ultrasound (Signed) Quentin Willson - 08/27/20 Mammogram Screening (Signed) Torsten Cross - 08/06/20 Pelvis Ultrasound (Signed) Nick Gaxiola - 07/26/20 Myocardial Perfusion Scan Nuc Med (Signed) Pj Maldonado - 12/21/19 EKG Rpt. 12/05/19 Hip X-Ray (Signed) Jay Kerr - 11/28/19 Pelvis Ultrasound (Signed) Sanjeev Willson - 06/21/19 Launch?[facility] [address] [address] XRay Report Signed Patient: Deloris Jaeger MR#: [id number] : 1965 Acct:[id number] Age/Sex: 56 / F Date of Service: 04/03/22 Loc: ED Accession Number: [id number] ?? Procedure: XR knee RT 3V Ordering Provider: *DEWEY Quezada*? PROCEDURE:? XR KNEE RT 3V ? INDICATIONS:? FALL HEARD KNEE POP CANT STRAIGHTEN ? TECHNIQUE:? 3 views of the knee were acquired.? ? COMPARISON:? [facility], , XR KNEE RT 3V, 03/29/2022, 16:01. ? FINDINGS:? ? Bones:? No fractures or dislocations.? There is minimal osteophytosis.? No suspicious bony lesions.? Minimal joint space narrowing redemonstrated in the medial compartment.? ? Soft tissues:? There is a suspected small joint effusion.? No suspicious soft tissue calcifications.? ? ? IMPRESSION:? ? 1. No fracture or dislocation.? ? Dictated by: Johny Bey M.D. on 04/03/2022 at 2:10 ? ? Approved by: Johny Bey M.D. on 04/03/2022 at 2:12?? MDM Narrative Medical decision making narrative: This is a 56-year-old female with about 3 weeks of right knee pain after jumping on the back of a truck, she is seen her primary care she is been taking NSAIDs, she is been weight-bearing as tolerated and had corticosteroid injection in the last week which patient states was minimally helpful. She re-injured the right knee this evening after tripping over her cat sort of a twisting awkward movement. She also had pain at the right ankle. Patient states swelling of the ankle resolved with ice and she is minimally tender lateral malleoli. She does have quite a bit of pain with movement of the knee no signs of infection on exam, patient does not have clear laxity but definitely has pain and may have an additional tendon or ligamentous injury. Discussed with patient follow-up with primary care, can follow up with Orthopedic surgery if persisting and may need MRI in the future if persisting. She is not been in knee immobilizer so discussed adding this as well as continuing to use crutches which she has from home and started using this evening after her injury. Return precautions all questions answered. Discharge Plan Departure Patient Disposition: Home Clinical Impression: Effusion of right knee joint, Strain of knee and leg, right Instructions: DI for Knee Sprain Activity Restrictions/Additional Instructions: Please follow-up with Dr. Brewster. With your new injury to your knee you may have re-injured the knee or caused injury to the tendons or ligaments, referral to ortho is included. You may call for an appointment. You may take tramadol 1-2 tablets every 6 hours as needed. You can take a leave regularly with this medication. I would not recommend taking tramadol with the cyclobenzaprine as these are both sedating medications. Prescription sent to [facility] in [place] You may weightbear as tolerated to the right lower extremity. Splint Care: Keep splint clean and dry. Elevated affected body part to decrease swelling. OK to use ice pack on the affected body part. Use for 15-20 minutes each time, for 5-6x per day. If you develop worsening pain, numbness, tingling, discoloration of the affected body part, adjust the knee immobilizer, and either see your doctor for an urgent re-assessment, or return to the Emergency Department. Return to the Emergency Department for any new or worsening symptoms. Prescriptions: New tramadol 50 mg tablet 50 mg PO Q6H PRN (Reason: pain) Qty: 10 0RF No Action naproxen sodium [Aleve] 220 mg capsule 440 mg PO BID PRN atorvastatin [Lipitor] 40 mg tablet 40 mg PO DAILY Qty: 90 3RF cyclobenzaprine 5 mg tablet 5 mg PO TID PRN (Reason: muscle spasm) Qty: 20 0RF caffeine 200 MG tablet 100 mg PO Qty: 0 ketoconazole 2 % cream 2 % Topical BID Qty: 25 1RF diclofenac sodium [Voltaren] 1 % gel 4 gram TOP .COMPLEX PRN (Reason: hip pain) Qty: 100 1RF Rx Instructions: 4 grams topical apply to hip as directed up to three times daily as needed for hip pain levothyroxine 50 mcg tablet 50 mcg PO DAILY Qty: 90 3RF Referrals: Dustin Brewster MD [Primary Care Provider] - Merly Lee MD [Physician] - Visit Report Forms: Patient Portal/API
[2022-04-03] MEDS: TRAMADOL 50 MG PREPACK 1 BOTTLE MISC (05:55)
[2022-04-03 06:09] VITALS: BP 132/91; PULSE 85; RESP 18; O2SAT 99
== END 2022-04-03 06:11 | disposition home or self-care (01) ==
PROVIDERS: Emergency Provider Emergency Medicine; PCP Family Medicine
DX: M25.461 Effusion, right knee (principal); S83.91XA Sprain of unspecified site of right knee, initial encounter; X50.1XXA Overexertion from prolonged static or awkward postures, initial encounter
CPT/HCPCS: 73562; 73610; 99282; 99283

== ENCOUNTER → 2022-04-23 08:46 | Outpatient (CLI) | payer OTHER, SELFPAY ==
--- NOTE | 2022-04-23 08:47 | DI.US.S_ITS ---
PROCEDURE: US ABDOMEN LIMITED INDICATIONS: 1 year FU Pancreatic cyst TECHNIQUE: Real-time focused scanning was performed of the abdomen, with image documentation. COMPARISON: [facility], CT, CT ABDOMEN PELVIS W CON, 03/27/2021, 15:23. [facility], US, US ABDOMEN COMPLETE, 03/11/2021, 7:39. FINDINGS: The liver demonstrates enlarged size. The liver demonstrates generalized moderately increased echogenicity. This decreases ultrasound sensitivity for detection of hepatic masses. No findings of gallstones or sludge are seen. The gallbladder wall is not thickened, measuring 3 mm or less. A likely 7 mm gallbladder wall polyp is seen, which is similar to the prior study. No specific pericholecystic fluid is seen. The sonographic Boles sign is negative. There is no biliary dilatation, the common bile duct measures 4 mm. An apparent pancreatic body cyst is seen that measures 11 x 6 x 8 mm, which measured 9 x 5 x 6 mm on the prior. IMPRESSION: Interval mild increase in size of the previously seen pancreatic cyst, now measuring up to 11 mm compared to up to 9 mm on the prior ultrasound. If clinically appropriate, please consider a follow-up pancreas protocol CT or MRI for further evaluation. Dictated by: Nick Gaxiola M.D. on 04/23/2022 at 8:33 Approved by: Nick Gaxiola M.D. on 04/23/2022 at 8:36
== END ==
PROVIDERS: PCP Family Medicine; Referring Provider Family Medicine; Visit Provider Family Medicine
DX: K86.2 Cyst of pancreas (principal)
CPT/HCPCS: 76705

== ENCOUNTER → 2022-04-30 11:57 | Outpatient (CLI) | payer OTHER, SELFPAY ==
--- NOTE | 2022-04-30 11:58 | DI.US.S_ITS ---
LIMITED ULTRASOUND OF RIGHT BREAST: 04/30/2022 CLINICAL: Patient returns for a 6 month follow up of the right breast. Comparison is made to exams dated: 04/30/2022 mammogram, 08/28/2020 ultrasound, 08/28/2020 mammogram, 08/06/2020 mammogram, 09/08/2017 ultrasound, and 09/08/2017 mammogram - [facility]. Color flow and real-time ultrasound of the right breast 3 o'clock region were performed. There is a benign 0.4 cm x 0.4 cm x 0.4 cm round complicated cyst in the right breast at 3 o'clock anterior depth 2 cm from the nipple. This round complicated cyst is hypoechoic with no posterior acoustic shadowing or enhancement. This abnormality is not significantly changed. Color flow imaging demonstrates that there is no vascularity present. IMPRESSION: BENIGN There is no sonographic evidence of malignancy. The 0.4 cm x 0.4 cm x 0.4 cm round complicated cyst in the right breast most likely is a simple cyst and is benign. A 1 year screening mammogram is recommended. This exam was interpreted at Station ID: [id number]. Electronically Signed By: Dustin Melara M.D., jr/charisma:04/30/2022 14:08:24 letter sent: Normal Exam Ultrasound BI-RADS: 2 Benign
--- NOTE | 2022-04-30 11:58 | DI.MG.S_ITS ---
BILATERAL DIGITAL DIAGNOSTIC MAMMOGRAM 3D/2D SHORT-TERM FOLLOW-UP: 04/30/2022 CLINICAL: Short term follow up of the right breast, due for bilateral imaging. Comparison is made to exams dated: 08/28/2020 ultrasound, 08/28/2020 mammogram, 08/06/2020 mammogram, and 09/08/2017 mammogram - [facility]. There are scattered areas of fibroglandular density in both breasts (category b / 25%-50% glandular tissue). There is a stable 0.4 cm x 0.4 cm x 0.4 cm cyst in the right breast at 2 o'clock anterior depth 2 cm from the nipple. This correlates with ultrasound findings and the prior exam. No other significant masses, calcifications, or other findings are seen in either breast. IMPRESSION: INCOMPLETE: NEEDS ADDITIONAL IMAGING EVALUATION Stable 0.4 cm x 0.4 cm x 0.4 cm right breast asymmetry which was demonstrated to represent a complicated cyst. An ultrasound has been scheduled to immediately follow this exam, as previously recommended. Based on the Tyrer Cuzick model (a risk assessment model) the patient's lifetime risk is 6.7% and her 10 year risk is 2.3%. According to the ACR, ACS, and NCCN guidelines, an annual breast MRI exam along with mammogram is recommended if the patient's lifetime risk is 20% or greater. This exam was interpreted at Station ID: [id number]. NOTE: For mammograms, a report in lay terms will be sent to the patient. Approximately 15% of breast malignancies will not be visualized mammographically. In the management of a palpable breast mass, a negative mammogram must not discourage biopsy of a clinically suspicious lesion. Electronically Signed By: Dustin Melara M.D. jr/:04/30/2022 14:07:18 ACR BI-RADS Category 0: Incomplete [id number]
== END ==
PROVIDERS: PCP Family Medicine; Referring Provider Family Medicine; Visit Provider Family Medicine
DX: R92.8 Other abnormal and inconclusive findings on diagnostic imaging of breast (principal); N60.01 Solitary cyst of right breast
CPT/HCPCS: 76642; 77066; G0279

== ENCOUNTER → 2023-08-30 09:50 | Outpatient (CLI) | payer OTHER, SELFPAY ==
--- NOTE | 2023-08-30 09:52 | DI.RAD.S_ITS ---
PROCEDURE: XR CHEST 2V INDICATIONS: Cough TECHNIQUE: 2 views of the chest were acquired. COMPARISON: None FINDINGS: Surgical changes and devices: None. Lungs and pleura: Lungs are clear. No pleural effusions or pneumothorax. Mediastinum: Mediastinal contours are normal. Heart size is normal. Bones and chest wall: No suspicious bony abnormalities. Soft tissues appear unremarkable. IMPRESSION: No acute cardiopulmonary abnormality is seen. Dictated by: North Carrillo M.D. on 08/30/2023 at 15:12 Approved by: North Carrillo M.D. on 08/30/2023 at 15:18
== END ==
LOC: RAD 09:51
PROVIDERS: PCP Family Medicine; Referring Provider Nurse Practitioner Family; Visit Provider Nurse Practitioner Family
DX: R05.9 Cough, unspecified (principal)
CPT/HCPCS: 71046

== ENCOUNTER → 2023-09-02 16:14 | Outpatient (CLI) | payer OTHER, SELFPAY ==
[2023-09-02 18:35] LABS: Appearance Urine UA CLEAR; Bilirubin Urine UA NEGATIVE (NEGATIVE); Color Urine UA YELLOW; Glucose Urine UA NEGATIVE (Negative); Ketones Urine UA NEGATIVE (NEGATIVE); Leukocyte Esterase Urine UA NEGATIVE (NEGATIVE); Nitrite Urine UA NEGATIVE (Negative); Occult Blood Urine UA 3+ (Negative); Protein Urine UA 1+ (Negative); Urobilinogen Urine UA 0.2 E.U./dL (0.2)
[2023-09-02 18:41] LABS: pH Urine UA 6.5 (4.5-8.0)
[2023-09-02 18:47] LABS: Bacteria Urine Occasional (0-1); Culture Indicated Urine Cult Not Indicated; Mucus Urine 1+ (Negative); RBC Urine 10-30/HPF (0-5/HPF); Squamous Epithelial Cell Urine 1-5 /HPF (0-5/HPF); Urine Volume 10mL (spun); WBC Urine 0-1/HPF (0-5/HPF)
== END ==
LOC: LAB 16:15
PROVIDERS: PCP Family Medicine; Referring Provider Family Medicine; Visit Provider Family Medicine
DX: R31.9 Hematuria, unspecified (principal); R30.0 Dysuria
CPT/HCPCS: 81001

== ENCOUNTER → 2023-09-09 12:21 | Outpatient (CLI) | payer OTHER, SELFPAY | PROVIDERS: PCP Family Medicine; Visit Provider Physician Assistant | DX: R30.0 Dysuria (principal) | CPT/HCPCS: 87086 ==

== ENCOUNTER → 2023-09-14 06:36 | Outpatient (CLI) | payer OTHER, SELFPAY ==
--- NOTE | 2023-09-14 06:37 | DI.US.S_ITS ---
PROCEDURE: US ABDOMEN COMPLETE INDICATIONS: F/U KNOWN PANCREAS CYST/KIDNEY STONE/FATTY LIVER/GB POLYP TECHNIQUE: Real-time scanning was performed of the abdominal and retroperitoneal organs, with image documentation. COMPARISON: [facility], CT, CT ABDOMEN PELVIS W CON, 03/27/2021, 15:23. [facility], US, US ABDOMEN LIMITED, 04/23/2022, 9:00. FINDINGS: Liver: The liver demonstrates diffusely increased echotexture without focal abnormalities consistent with chronic hepatocellular disease/hepatic steatosis. Gallbladder: Multiple probable gallbladder polyps are noted within the gallbladder measuring approximately 2 mm in size. Additionally, interval enlargement of previously described 7 mm nonvascular focus within the gallbladder wall now measuring 1.0 x 0.7 x 0.6 cm. Findings may represent a gallbladder polyp versus adherent gallstone or sludge. No wall thickening. No pericholecystic fluid. Biliary ducts: Intrahepatic bile ducts are non-dilated. Extrahepatic bile duct caliber measures 5 mm. Normal is 6-7 mm or less in diameter, or 10 mm or less post-cholecystectomy. Pancreas: Redemonstration of probable pancreatic tail cyst measuring 1.1 x 0.6 x 0.6 cm, previously 1.1 x 0.8 x 0.6 cm. Pancreatic duct measures 2 mm in diameter. Other visualized portions of the pancreas are sonographically normal. Spleen: Spleen is normal in size and homogeneous in echotexture. Kidneys: Kidneys are normal in size and echotexture. Right kidney measures 11.0 cm long; left kidney measures 12.0 cm long. There is mild right proximal hydroureter with a proximal right ureteral stone visualized measuring 1.2 cm in diameter. No left hydronephrosis or nephrolithiasis. Inferior left renal cysts similar to prior exam. No solid masses. Aorta: Visualized aorta is normal in caliber at less than 3 cm. Iliacs: Common iliac not well visualized secondary to bowel gas. IVC: Intrahepatic inferior vena cava is patent. Miscellaneous: No free abdominal fluid. Prevoid urinary bladder volume measured 28 mL. Left ureteral jet was visualized. Right ureteral jet not well seen. IMPRESSION: 1. Stable appearance of pancreatic tail cyst measuring 1.1 cm on today's study. 2. A 1.2 cm mildly obstructing proximal right ureteral stone with associated right hydroureter. No right hydronephrosis. 3. Multiple gallbladder polyps with interval enlargement of previously described 7 mm lesion now measuring up to 1.0 cm. There is no associated vascularity. Findings may represent a gallbladder wall polyp versus adherent gallstone/sludge. No associated wall thickening the Dictated by: Torsten Cross M.D. on 09/14/2023 at 9:23 Approved by: Torsten Cross M.D. on 09/14/2023 at 9:36
== END ==
PROVIDERS: PCP Family Medicine; Referring Provider Physician Assistant; Visit Provider Physician Assistant
DX: N13.2 Hydronephrosis with renal and ureteral calculous obstruction (principal); K86.2 Cyst of pancreas; K82.4 Cholesterolosis of gallbladder; N83.209 Unspecified ovarian cyst, unspecified side
CPT/HCPCS: 76700

== ENCOUNTER → 2023-09-16 15:52 | Outpatient (CLI) | payer OTHER, SELFPAY ==
--- NOTE | 2023-09-16 15:53 | DI.US.S_ITS ---
PROCEDURE: US PELVIC COMPLETE INDICATIONS: LEFT OVARIAN CYST FOLLOW UP TECHNIQUE: Real-time scanning was performed of the pelvic organs, with image documentation. Additional endovaginal scanning was necessary due to incomplete visualization of the adnexal and endometrial structures by transabdominal scanning. COMPARISON: [facility], US, US PELVIC COMPLETE, 07/26/2020, 10:09. FINDINGS: Uterus: Uterus is anteverted and normal in size at 8.1 x 4.6 x 3.4 cm. The myometrium is homogeneous. The endometrium measures 3 mm combined thickness. Intramural fibroid at the mid uterine segment measuring 2.2 cm, previously 2.3 cm. Intramural fibroid in the anterior middle uterine segment measuring 1.5 cm, previously 1.4 cm. Ovaries: The right ovary measures 1.7 x 1.2 x 1.1 cm, with a calculated ovarian volume of 1.2 cc. The left ovary measures 1.6 x 1.1 x 1.1 cm, with a calculated ovarian volume of 1.0 cc. The ovaries have a normal sonographic appearance. Less than 12 follicles can be seen in each ovary. No adnexal masses are seen. Other: No pathologic free abdominal or pelvic fluid. IMPRESSION: Resolved left ovarian cyst. We strive to produce accurate, complete, and clear reports of imaging services. To assist us in improving patient care, this report was composed using standard report templates and voice recognition software. Therefore, it may contain abnormal punctuation, insertions and/or omissions. Occasional wrong-word or sound-alike substitutions may occur. Though we review the report and make efforts to correct it, we do recommend that the report be read carefully in proper context to recognize any text inaccuracies. Dictated by: Addi Whatley M.D. on 09/17/2023 at 9:41 Approved by: Addi Whatley M.D. on 09/17/2023 at 9:42
== END ==
PROVIDERS: PCP Family Medicine; Referring Provider Physician Assistant; Visit Provider Physician Assistant
DX: N83.202 Unspecified ovarian cyst, left side (principal); D25.1 Intramural leiomyoma of uterus; K86.2 Cyst of pancreas; N20.0 Calculus of kidney
CPT/HCPCS: 76830; 76856

== ENCOUNTER → 2023-09-30 12:46 | Outpatient (CLI) | payer OTHER, SELFPAY ==
--- NOTE | 2023-09-30 12:46 | DI.CT.S_ITS ---
PROCEDURE: CT KIDNEY URETER BLADDER (KUB) INDICATIONS: hematuria TECHNIQUE: Axial sections were acquired from the lung bases to the pubic symphysis. Coronal and sagittal reformats were performed. For radiation dose reduction, the following was used: automated exposure control, adjustment of mA and/or kV according to patient size. COMPARISON: [facility], CT, CHEST/ABD/PEL WITH CONTRAST, 12/04/2016, 16:58. [facility], US, US ABDOMEN COMPLETE, 09/14/2023, 7:10. [facility], CT, CT ABDOMEN PELVIS W CON, 03/27/2021, 15:23. FINDINGS: Image quality: Diagnostic. Evaluation of the visceral organs is limited due to the lack of intravenous contrast. Lower Chest: Right lower lobe medial compressive atelectasis. No suspicious pulmonary nodule. No basilar effusion. URINARY: Right Kidney: Mild hydronephrosis. Mild fat stranding in the renal pelvis. Right Ureter: Right proximal ureteral nephrolith measuring 9 x 7 mm. [id number] diffuse hydroureter distal to the proximal ureteral stone. Questionable tiny stone versus artifact at the right ureterovesical junction (3/). Left Kidney: Punctate nonobstructive nephrolith in the left lower pole measuring 1 mm. Left Ureter: No hydroureter. Bladder: Normal wall thickness. No stones. ABDOMEN: Liver: No contour-deforming solid mass. Hepatomegaly. Diffuse hepatic hypoattenuation. Gallbladder: No radiopaque gallstones or wall thickening. Gallbladder polyps are better seen on ultrasound. Biliary ducts: No biliary dilation. Pancreas: No ductal dilation. Stable subcentimeter hypodensity pancreatic body measuring 5 mm (2), previously 6 mm in November 2016. Spleen: Size is within normal limits. Adrenal Glands: No adrenal nodules. Stomach and Bowel: Normal colonic caliber, without significant wall thickening. Colonic diverticulosis, without diverticulitis. Peritoneum: No abnormal intraperitoneal fluid. No free air. Ventral Wall: Tiny fat containing umbilical hernia. Abdominal Nodes: No enlarged retroperitoneal or mesenteric lymph nodes. Vessels: Aorta and inferior vena cava are normal in size. Mild calcification of the abdominal aorta and iliac vessels. PELVIS: Pelvic Organs: Unremarkable. Pelvic Nodes: Unremarkable. Miscellaneous: No inguinal hernias are seen. Bones: No acute fractures. No aggressive appearing lytic or blastic osseous lesions. Bilateral hip arthroplasties. Mild degenerative changes of the spine. IMPRESSION: Evaluation of the visceral organs is limited due to the lack of intravenous contrast. 1. Mild right-sided hydroureteronephrosis secondary to an obstructive nephrolith in the proximal ureter measuring 9-7 mm. Distal to the nephrolith, there is [id number] diffuse right-sided hydroureter with questionable tiny stone versus artifact at the ureterovesical junction. Consider cystoscopy for further evaluation, at clinical discretion. 2. Left-sided lower pole nonobstructive nephrolith measuring 1 mm. 3. Diverticulosis, without diverticulitis. 4. Stable cyst in the pancreatic distal body since November 2016, most compatible with a benign side branch IPMN. 5. Gallbladder polyps are better seen on ultrasound. Dictated by: David Hanna M.D. on 09/30/2023 at 19:06 Approved by: David Hanna M.D. on 09/30/2023 at 19:22
== END ==
LOC: CT 12:46
PROVIDERS: PCP Family Medicine; Referring Provider Family Medicine; Visit Provider Family Medicine
DX: N13.2 Hydronephrosis with renal and ureteral calculous obstruction (principal); R31.9 Hematuria, unspecified; K57.90 Diverticulosis of intestine, part unspecified, without perforation or abscess without bleeding; K86.2 Cyst of pancreas; K82.4 Cholesterolosis of gallbladder
CPT/HCPCS: 74176

== ENCOUNTER → 2023-10-14 12:46 | Outpatient (CLI) | payer OTHER, SELFPAY ==
--- NOTE | 2023-10-14 12:48 | DI.MG.S_ITS ---
BILATERAL DIGITAL SCREENING MAMMOGRAM 3D/2D WITH CAD: 10/14/2023 CLINICAL: Routine screening. Family history of breast cancer. Comparison is made to exams dated: 04/30/2022 mammogram, 08/28/2020 mammogram, 08/06/2020 mammogram, 09/08/2017 mammogram, and 08/18/2017 mammogram - [facility]. There are scattered areas of fibroglandular density in both breasts (category b / 25%-50% glandular tissue). Current study was also evaluated with a Computer Aided Detection (CAD) system. No significant masses, calcifications, or other findings are seen in either breast. There has been no significant interval change. IMPRESSION: NEGATIVE There is no mammographic evidence of malignancy. A 1 year screening mammogram is recommended. Based on the Tyrer Cuzick model (a risk assessment model) the patient's lifetime risk is 6.5% and her 10 year risk is 2.5%. According to the ACR, ACS, and NCCN guidelines, an annual breast MRI exam along with mammogram is recommended if the patient's lifetime risk is 20% or greater. This exam was interpreted at Station ID: [id number]. NOTE: For mammograms, a report in lay terms will be sent to the patient. Approximately 15% of breast malignancies will not be visualized mammographically. In the management of a palpable breast mass, a negative mammogram must not discourage biopsy of a clinically suspicious lesion. Electronically Signed By: Ryan guillaume/[email or web address]:10/14/2023 13:55:50 letter sent: Normal Exam ACR BI-RADS Category 1: Negative [id number]
== END ==
PROVIDERS: PCP Family Medicine; Referring Provider Family Medicine; Visit Provider Family Medicine
DX: Z12.31 Encounter for screening mammogram for malignant neoplasm of breast (principal); Z80.3 Family history of malignant neoplasm of breast; R92.323 Mammographic fibroglandular density, bilateral breasts
CPT/HCPCS: 77063; 77067

== ENCOUNTER → 2023-11-24 22:51 | Outpatient (CLI) | payer OTHER, SELFPAY ==
--- NOTE | 2023-11-24 | DI.RAD.S_ITS ---
PROCEDURE: XR ABDOMEN 1V INDICATIONS: rt renal pelvis stone TECHNIQUE: One view of the abdomen acquired. COMPARISON: [facility], CT, CT ABDOMEN PELVIS W CON, 03/27/2021, 15:23. [facility], CT, CT KIDNEY URETER BLADDER (KUB), 09/30/2023, 12:50. FINDINGS: Surgical changes and devices: None. Bowel: Bowel gas pattern is normal. Somewhat prominent stool in the right colon. Soft tissues: Stone projecting in the region of the right kidney measuring 1 cm. Suspect this is unchanged. No suspicious abdominal calcifications. Visualized solid organ contours appear normal in size. Bones: No suspicious bony lesions. Bilateral hip arthroplasties. IMPRESSION: Stone projecting in the region of the right kidney measuring 1 cm. Suspect that this is unchanged. This stone was previously seen in the right renal pelvis. CT KUB could be considered for further evaluation. Dictated by: Igor Garcia M.D. on 11/25/2023 at 9:17 Approved by: Igor Garcia M.D. on 11/25/2023 at 9:21
== END ==
LOC: DI 22:56
PROVIDERS: PCP Family Medicine; Referring Provider Physician Assistant Medical; Visit Provider Physician Assistant Medical
DX: N20.0 Calculus of kidney (principal); Z96.643 Presence of artificial hip joint, bilateral
CPT/HCPCS: 74018

== ENCOUNTER 2024-05-29 08:57 | Emergency (ER) | payer OTHER, SELFPAY ==
[2024-05-29 09:03] VITALS: BP 183/96; PULSE 93; RESP 15; TEMP 36.8; O2SAT 99; BMI 32.3
[2024-05-29 09:08] VITALS: BP 183/96; PULSE 97; O2SAT 98
--- NOTE | 2024-05-29 09:08 | ED.GENADULT ---
HPI - General Adult General Chief complaint: Back Pain/Injury Stated complaint: Back lower pain Time Seen by Provider: 05/29/24 09:04 History of Present Illness HPI narrative: 58-year-old woman with a history of hypothyroidism presents complaining of muscle spasms that have progressed to the point that she is having difficulty moving secondary to pain and low back pain along the entire lumbar area radiating down into the right buttock and external thigh. She has had an episode of similar sciatic type pain about 4 years ago that resolved with steroids nonsteroidals and rest. That was not associated with muscle spasm. She states that she has not been vomiting or having diarrhea. She has on no medications that should cause significant electrolyte abnormalities. She does not describe any specific trauma or ?twinges? that may have set off this current episode. She has not having paresthesias or weakness. No dysuria, vaginal discharge or flank pain. No abdominal pain Related Data Previous Rx's Medication Instructions Recorded levothyroxine 50 mcg tablet 50 mcg PO DAILY #30 tabs 11/04/23 diazepam 5 mg tablet 5 mg PO BID PRN muscle spasm #10 05/29/24 tabs Allergies Allergy/AdvReac Type Severity Reaction Status Date / Time latex [LATEX] Allergy Unknown Verified 05/29/24 09:10 meperidine [From DEMEROL] Allergy Unknown NAUSEA Verified 05/29/24 09:10 Penicillins [PENICILLINS] Allergy Unknown Verified 05/29/24 09:10 Review of Systems Review of Systems Narrative: Pertinent positive and negative findings as per HPI Patient History Medical History Concussion Cyst of left ovary (07/07/17) Flank pain (07/07/17) Left shoulder strain Surgical History Status post appendectomy Status post dilation and curettage Family History Father Age: 81 Heart disease Hypertension A-fib Grandfather Cancer Heart disease Grandmother Fibromyalgia Mother Age: 77 Arthritis Grandmother Cancer Social History marital status: Smoking Status: Never smoker alcohol intake: current substance use type: does not use Smoking Status: Never smoker Substance Use Type: does not use Exam Narrative Exam Narrative: General: Healthy appearing, in in pain, holding herself theory still to avoid muscle movement but otherwise Able to give a complete and coherent history. Well-nourished well-developed HEENT: Moist mucous membranes, normal sclera with reactive pupils, Respiratory: Lungs are clear to auscultation, no wheezing no rales no rhonchi. Full and symmetrical air movement Cardiac: Regular rate and rhythm no murmurs no bruits Abdomen: Soft, nontender, good bowel tones, no flank pain Spine: No tenderness along the spine from C1 to the sacrum. No redness, swelling or warmth. No obvious palpable muscle spasm is appreciated Skin: Warm and dry, no rashes Neurologic: Grossly neurologically intact with no obvious asymmetries or abnormalities. She is not hyperreflexic. She does not have lower extremity paresthesias, Extremities: No trauma, well perfused Psych: Cooperative, appropriate insight and affect Initial Vital Signs Initial Vital Signs: Vital Signs Temperature 98.2 F 05/29/24 09:03 Pulse Rate 93 H 05/29/24 09:03 Respiratory Rate 15 05/29/24 09:03 Blood Pressure 183/96 H 05/29/24 09:03 Pulse Oximetry 99 05/29/24 09:03 Oxygen Delivery Method Room Air 05/29/24 09:03 Course Orders Ordered: ED Orders 05/29/24 09:20 Complete Blood Count AUTO DIFF Stat Comprehensive Metabolic Panel Stat Free T4, Direct Thyroxine Stat Magnesium Stat TSH w/ Reflex to FT4 Stat 05/29/24 11:50 Urine Microscopic Stat Discontinued Medications Ketorolac Tromethamine (Ketorolac 30 Mg/Ml Vial) 15 mg IV NOW ONE Stop: 05/29/24 09:22 Last Admin: 05/29/24 09:31 Dose: 15 mg Documented By: SPF Vital Signs Vital signs: Vital Signs - 8 hr 05/29/24 09:03 05/29/24 09:08 05/29/24 09:08 Temperature 98.2 F Pulse Rate 93 H 97 H Respiratory Rate 15 Blood Pressure 183/96 H 183/96 H Pulse Oximetry 99 98 Oxygen Delivery Method Room Air 05/29/24 11:19 05/29/24 11:19 Temperature Pulse Rate 78 Respiratory Rate Blood Pressure 134/75 Pulse Oximetry 98 Oxygen Delivery Method Room Air Medical Decision Making Lab Data 05/29/24 09:20 05/29/24 09:20 Labs: Lab Results 05/29/24 Range/Units 09:20 WBC 6.4 (4.5-11.0) X10^3/uL RBC 5.08 (4.0-5.2) X10^6/uL Hgb 14.8 (12.0-16.0) g/dL Hct 44.3 (36-46) % MCV 87.2 (80-100) fL MCH 29.1 (26-34) PG MCHC 33.3 (30-36) % RDW 13.1 (11.6-14.8) % Plt Count 259 (150-400) X10^3/uL Neut % (Auto) 66.6 (50-75) % Lymph % (Auto) 22.7 L (25-40) % [place] % (Auto) 6.3 (3-14) % Eos % (Auto) 3.7 (2-4) % Baso % (Auto) 0.7 (0-2) % Neut # (Auto) 4200 (2520-5212) /uL Lymph # (Auto) 1400 (8094-5267) /uL [place] # (Auto) 400 (0-900) /uL Eos # (Auto) 200 (0-450) /uL Baso # (Auto) 0 (0-100) /uL Sodium 137 (137-145) mmol/L Potassium 4.1 (3.4-5.1) mmol/L Chloride 101 (98-107) mmol/L Carbon Dioxide 26 (22-32) mmol/L BUN 13 (7-17) mg/dL Creatinine 0.69 (0.52-1.04) mg/dL Estimated GFR > 60 (>60) mL/min BUN/Creatinine Ratio 18.8 (6-22) Glucose 306 H (70-100) mg/dL Calcium 9.1 (8.4-10.2) mg/dL Magnesium 2.1 (1.6-2.3) mg/dL Total Bilirubin 0.9 (0.2-1.3) mg/dL AST 36 (14-36) IU/L ALT 37 H (<35) IU/L Alkaline Phosphatase 91 (38-126) U/L Total Protein 8.2 (6.3-8.2) g/dL Albumin 4.7 (3.5-5.0) g/dL Globulin 3.5 (1.7-4.1) g/dL Albumin/Globulin Ratio 1.3 (1.0-2.8) TSH 5.10 H (0.47-4.68) uIU/mL Free T4 0.75 L (0.78-2.19) ng/dL Urine Dip Bedside Urine Glucose 1000 mg/dl Bedside Urine Bilirubin - Negative Bedside Urine Ketone - Negative Urine Specific [place] 1.015 Bedside Urine Occult Blood +/- Bedside Urine pH 6.0 Bedside Urine Protein - Negative Bedside Urine Urobilinogen - Negative Bedside Urine Nitrite - Negative Bedside Urine Leukocytes - Negative Esterase Point of care testing: Urine Dip Bedside Urine Glucose 1000 mg/dl Bedside Urine Bilirubin - Negative Bedside Urine Ketone - Negative Urine Specific [place] 1.015 Bedside Urine Occult Blood +/- Bedside Urine pH 6.0 Bedside Urine Protein - Negative Bedside Urine Urobilinogen - Negative Bedside Urine Nitrite - Negative Bedside Urine Leukocytes - Negative Esterase MDM Narrative Medical decision making narrative: CC: Low back pain with muscle spasm Complicating co-morbidities: Hypothyroidism, last TSH documented in her chart is 2020 Data collected from: patient Medical records reviewed: Primary care notes from August 2023 are reviewed Differential considered: Musculoskeletal back pain, radicular findings, significant electrolyte abnormalities, doubt infection, she does not have any nuchal rigidity to suggest meningitis, no risk factors or physical findings to suggest epidural abscess Exam documented above, pertinent findings include: Patient appears acutely uncomfortable, she is splinting her back while sitting on the bed. She has no abdominal tenderness, no tenderness along the midline spine. She does not actually have significant palpable muscle spasm. Lungs are unremarkable. She is not hyperreflexic, she does not have significant paresthesias Lab Test results independently reviewed as above. Pertinent findings: Chemistries are unremarkable with normal sodium, potassium, calcium Magnesium is appropriate CBC is reassuring TSH is minimally elevated and free T4 is appropriate Treatments: Toradol parenterally Discussion: 58-year-old woman presents complaining of musculoskeletal back pain without acute neurologic findings for which Flexeril has not been completely effective. She notes that she has cramping and tingling in almost all muscles. She is worried that electrolytes maybe off. Only medical issue is hypothyroidism that appears to be appropriately medically managed. The back pain was improved with the Toradol. The muscle spasm minimally so. We discussed additional treatment beyond ibuprofen and Tylenol with either narcotic or muscle relaxant and she felt that muscle relaxant would be most effective. To that end she has given a prescription for diazepam. Did suggest that she follow up with her primary care physician to further discuss the muscle spasms she is having. This point there was no evidence of acute infection, electrolyte abnormalities, kidney dysfunction or alternate explanations for her back pain that would require further imaging or hospitalization. She is safe for discharge Discharge Plan Departure Patient Disposition: Home Clinical Impression: Muscle spasm Acute low back pain Qualifiers: Back pain laterality: unspecified Sciatica presence: without sciatica Qualified Code(s): M54.50 - Low back pain, unspecified Instructions: DI for Low Back Pain Activity Restrictions/Additional Instructions: Thank you for coming in today I am sorry that you are having so much muscle spasm with this acute back pain. I did not find significant abnormalities with your blood work. Specifically, your kidney function, liver function all electrolytes and thyroid studies are essentially normal. You are given parenteral Toradol in the emergency department, the next time to take any additional Alleve would be around 6:[address] [facility]. We discussed using either narcotic pain medication or muscle relaxer to help and felt that muscle relaxer would be more effective. A prescription for diazepam is sent to [facility] in [place]. You have said that Alleve tends to work best for you I would recommend to Alleve and 1 Tylenol 1st thing in the morning and approximately 12 hours later. Would recommend a follow up with your primary care physician to discuss the muscle spasms If you find that you are getting worse or develop any new symptoms, please feel free to return to the emergency department for further evaluation. Prescriptions: New diazepam 5 mg tablet 5 mg PO BID PRN (Reason: muscle spasm) Qty: 10 0RF No Action levothyroxine 50 mcg tablet 50 mcg PO DAILY Qty: 30 0RF Rx Instructions: Overdue for labs Referrals: Dustin Brewster MD [Primary Care Provider] - Stand Alone Forms: Patient Portal/API/Survey
[2024-05-29 09:30] LABS: Add Manual Diff / Slide Review NO; Basophils Absolute Auto 0 /uL (0-100); Basophils Percent Auto 0.7 % (0-2); Eosinophils Absolute Auto 200 /uL (0-450); Eosinophils Percent Auto 3.7 % (2-4); Hematocrit 44.3 % (36-46); Hemoglobin 14.8 g/dL (12.0-16.0); Lymphocytes Absolute Auto 1400 /uL (1100-4500); Lymphocytes Percent Auto 22.7 % (25-40); Mean Corpuscular HGB Conc 33.3 % (30-36); Mean Corpuscular Hemoglobin 29.1 PG (26-34); Mean Corpuscular Volume 87.2 fL (80-100); Monocytes Absolute Auto 400 /uL (0-900); Monocytes Percent Auto 6.3 % (3-14); Neutrophils Absolute Auto 4200 /uL (1500-7000); Neutrophils Percent Auto 66.6 % (50-75); Platelet Count 259 X10^3/uL (150-400); Red Blood Cell Count 5.08 X10^6/uL (4.0-5.2); Red Cell Distribution Width 13.1 % (11.6-14.8); White Blood Cell Count 6.4 X10^3/uL (4.5-11.0)
[2024-05-29] MEDS: KETOROLAC 30 MG/ML VIAL 15 MG IV (09:31)
[2024-05-29 09:45] LABS: Alanine Aminotransferase 37 IU/L (<35); Albumin 4.7 g/dL (3.5-5.0); Albumin Globulin Ratio 1.3 (1.0-2.8); Alkaline Phosphatase 91 U/L (38-126); Aspartate Aminotransferase 36 IU/L (14-36); BUN Creatinine Ratio 18.8 (6-22); Bilirubin Total 0.9 mg/dL (0.2-1.3); Blood Urea Nitrogen 13 mg/dL (7-17); Calcium 9.1 mg/dL (8.4-10.2); Carbon Dioxide 26 mmol/L (22-32); Chloride 101 mmol/L (98-107); Estimated Glomerular Filt Rate > 60 mL/min (>60); Globulin 3.5 g/dL (1.7-4.1); Glucose 306 mg/dL (70-100); HEMOLYSIS < 15 (0-50); Magnesium 2.1 mg/dL (1.6-2.3); Potassium 4.1 mmol/L (3.4-5.1); Sodium 137 mmol/L (137-145); Total Protein 8.2 g/dL (6.3-8.2)
[2024-05-29 10:40] LABS: Free T4, Direct Thyroxine 0.75 ng/dL (0.78-2.19)
[2024-05-29 11:19] VITALS: BP 134/75; PULSE 78; O2SAT 98
[2024-05-29 12:15] LABS: Urine Volume 10mL (spun)
[2024-05-29 12:19] LABS: Bacteria Urine None Seen; Culture Indicated Urine Cult Not Indicated; RBC Urine 1-5/HPF (0-5/HPF); Squamous Epithelial Cell Urine None Seen (0-5/HPF); WBC Urine None Seen (0-5/HPF)
== END 2024-05-29 12:28 | disposition home or self-care (01) ==
PROVIDERS: Emergency Provider Emergency Medicine; PCP Family Medicine
DX: M54.50 Low back pain, unspecified (principal); M62.830 Muscle spasm of back
CPT/HCPCS: 36415; 80053; 81003; 81015; 83735; 84439; 84443; 85025; 96374; 99284; J1885

== ENCOUNTER → 2024-06-01 12:28 | Outpatient (CLI) | payer OTHER, SELFPAY ==
--- NOTE | 2024-06-01 12:29 | DI.RAD.S_ITS ---
PROCEDURE: XR LUMBAR SPINE 2-3V INDICATIONS: low back pain TECHNIQUE: 3 views of the lumbar spine were acquired. COMPARISON: None. FINDINGS: Bones: 5 [id number] vertebrae are present. There is normal bony alignment. Loss of disc height, degenerative endplate changes and bilateral facet arthrosis at L4-5 and L5-S1 levels are seen. No vertebral body compression fractures. No suspicious bony lesions. Soft tissues: Overlying bowel gas pattern is normal. No suspicious soft tissue calcifications. IMPRESSION: Mild degenerative disc disease in lower lumbar spine. No acute compression fracture or spondylolisthesis. Dictated by: Sanjeev Willson M.D. on 06/01/2024 at 16:03 Approved by: Sanjeev Willson M.D. on 06/01/2024 at 16:04
[2024-06-01 14:16] LABS: Hemoglobin A1C% w Est Avg Glu 8.7 % (4.0-6.0)
[2024-06-01 15:18] LABS: Vitamin B12 842 pg/mL (239-931)
[2024-06-01 16:56] LABS: Vitamin D 25 Hydroxy (D3) 19.3 ng/mL (30.0-100.0)
== END ==
PROVIDERS: PCP Family Medicine; Referring Provider Physician Assistant; Visit Provider Physician Assistant
DX: M51.360 Other intervertebral disc degeneration, lumbar region with discogenic back pain only (principal); R29.898 Other symptoms and signs involving the musculoskeletal system; R53.82 Chronic fatigue, unspecified; N20.0 Calculus of kidney; K76.0 Fatty (change of) liver, not elsewhere classified; E55.9 Vitamin D deficiency, unspecified; R73.9 Hyperglycemia, unspecified
CPT/HCPCS: 36415; 72100; 82306; 82607; 83036

== ENCOUNTER → 2024-07-15 11:39 | Outpatient (CLI) | payer OTHER, SELFPAY ==
[2024-07-15 12:43] LABS: Vitamin D 25 Hydroxy (D3) 57.1 ng/mL (30.0-100.0)
[2024-07-15 12:46] LABS: Free T3, Triiodothyronine Free 3.76 pg/mL (2.77-5.27)
[2024-07-15 13:00] LABS: TSH w/ Reflex to FT4 1.57 uIU/mL (0.47-4.68)
[2024-07-16 05:10] LABS: Thyroid Peroxidase Antibodies 14 IU/mL (0-34)
== END ==
PROVIDERS: PCP Family Medicine; Referring Provider Physician Assistant; Visit Provider Physician Assistant
DX: R73.9 Hyperglycemia, unspecified (principal); E03.9 Hypothyroidism, unspecified; E55.9 Vitamin D deficiency, unspecified
CPT/HCPCS: 36415; 82306; 84443; 84481; 86376